=== PATIENT | female | born 1985 | race Caucasian/White ===

== ENCOUNTER 2016-10-18 20:16 | Emergency (ER) | payer SELFPAY ==
[2016-10-18 20:31] VITALS: BP 117/65; PULSE 80; TEMP 98.7; BMI 28.3
--- NOTE | 2016-10-18 21:16 | PDOC ---
History of Present Illness - General Chief Complaint: ,Possible Stated Complaint: NEEDS GYNECOLOGICAL EVAL Time Seen by Provider: 10/18/16 20:51 History Source: Patient - History of Present Illness Initial Comments: 10/18/16 21:15 31 year old female with 2 positive home at home and spotting. LMP 2016. IUD placed 5 years ago. no pmhx Past History - Past Medical History Allergies/Adverse Reactions: Allergies Allergy/AdvReac Type Severity Reaction Status Date / Time No Known Allergies Allergy Verified 10/18/16 20:27 Home Medications: Ambulatory Orders Oxycodone HCl/Acetaminophen [Percocet 5-325 mg Tablet] 1 - 2 tab PO Q6H #20 tablet MDD 4 10/23/16 Other medical history: Denies - Immunization History Immunization Up to Date: Yes - Psycho/Social/Smoking Cessation Hx Suicidal Ideation: No Smoking History: Never smoked Have you smoked in the past 12 months: No Information on smoking cessation initiated: No Hx Alcohol Use: No Drug/Substance Use Hx: No Substance Use Type: None *Physical Exam - Vital Signs Last Vital Signs Temp Pulse Resp BP Pulse Ox 98.7 F 80 16 117/65 99 10/18/16 20:28 10/18/16 20:28 10/18/16 20:28 10/18/16 20:28 10/18/16 20:28 - Physical Exam General Appearance: Yes: Appropriately Dressed Respiratory/Chest: positive: Normal Breath Sounds Cardiovascular: positive: Regular Rhythm, Regular Rate Female Pelvic Exam: positive: normal external exam, cervical os closed, normal adnexa, other (IUD string not visualized). negative: CMT Gastrointestinal/Abdominal: positive: Normal Bowel Sounds, Soft Musculoskeletal: positive: Normal Inspection Extremity: positive: Normal Capillary Refill, Normal Inspection, Normal Range of Motion Integumentary: positive: Normal Color, Dry, Warm Neurologic: positive: Fully Oriented, Alert, Normal Mood/Affect ED Treatment Course - LABORATORY CBC & Chemistry Diagram: 10/18/16 21:20 - RADIOLOGY Radiograph Interpretation: 10/19/16 01:10 US: No IUP IUD in place. early cannot be excluded. Progress Note - Progress Note Progress Note: A: suspected with IUD P: cbc cmp U/s type and screen: o+ no identified. patient is to follow up with reimbursement spec for repeat beta hcg and u/s? *DC/Admit/Observation/Transfer Diagnosis at time of Disposition: Positive blood test - Discharge Dispostion Disposition: HOME - Patient Instructions Printed Discharge Instructions: Medications and Additional Instructions: follow up with logistics coordinator in 2 days for repeat lab results. return to the ER if you are having worsening symptoms, fever NVD.
--- NOTE | 2016-10-18 21:23 | PDOC ---
*Physical Exam - Vital Signs Last Vital Signs Temp Pulse Resp BP Pulse Ox 98.7 F 80 16 117/65 99 10/18/16 20:28 10/18/16 20:28 10/18/16 20:28 10/18/16 20:28 10/18/16 20:28 ED Treatment Course - LABORATORY CBC & Chemistry Diagram: 10/18/16 21:20 Medical Decision Making - Medical Decision Making 10/18/16 21:23 agree with care from ANIA Holley *DC/Admit/Observation/Transfer Diagnosis at time of Disposition: Positive blood test - Discharge Dispostion Disposition: HOME - Patient Instructions Printed Discharge Instructions: Medications and Additional Instructions: follow up with medical coder in 2 days for repeat lab results. return to the ER if you are having worsening symptoms, fever NVD.
[2016-10-18 21:50] LABS: BASOPHIL 0.9 % (0-2.0); EOSINOPHIL 1.1 % (0-4.5); MCH 30.2 pg (25.7-33.7); MCHC 33.8 g/dl (32.0-36.0); MEAN CELL VOLUME 89.3 fl (80-96); MEAN PLT VOLUME 8.6 fl (7.5-11.1); NEUTROPHILS 67.1 % (42.8-82.8); PLATELET COUNT 315 K/MM3 (134-434); RDW 13.1 % (11.6-15.6); WHITE BLOOD COUNT 5.8 K/mm3 (4.0-10.0)
[2016-10-18 22:02] LABS: INR 1.08 (0.82-1.09); PROTHROMBIN TIME (PATIENT) 11.9 SEC (9.98-11.88)
[2016-10-18 22:03] LABS: URINE APPEARANCE CLEAR; URINE BILIRUBIN NEGATIVE (NEGATIVE); URINE BLOOD NEGATIVE (NEGATIVE); URINE COLOR STRAW; URINE GLUCOSE (UA) NEGATIVE (NEGATIVE); URINE KETONE NEGATIVE (NEGATIVE); URINE LEUK ESTERASE NEGATIVE (NEGATIVE); URINE NITRITE NEGATIVE (NEGATIVE); URINE PROTEIN NEGATIVE (NEGATIVE); URINE UROBILINOGEN NEGATIVE E.U./dl (0.2-1.0)
== END 2016-10-19 01:26 | disposition home or self-care (01) ==
LOC: JER 20:16
DX: Z32.01 Encounter for pregnancy test, result positive (principal); Z97.5 Presence of (intrauterine) contraceptive device
CPT/HCPCS: 36415; 76817-TC; 81003; 84702; 84703; 85025; 85610; 86850; 86900; 86901; 87086; 99283-25

== ENCOUNTER 2016-10-22 22:33 | Emergency (ER) | payer SELFPAY ==
[2016-10-22 22:42] VITALS: BP 118/72; PULSE 78; TEMP 99; BMI 26.6
--- NOTE | 2016-10-22 23:22 | PDOC ---
History of Present Illness - History of Present Illness Initial Comments: 10/22/16 23:33 The patient is a 31 year old female, with no significant past medical history, who presents to the emergency department for suprapubic abdominal pain today. She reports last week she was feeling extremely emotional and took two home test which were positive, however, she reports she has an IUD in place. She reports being seen in the ED a week ago and having a transvaginal ultrasound performed which was negative for IUP or ectopic. She states that today she has some vaginal bleeding and increasing suprapubic abdominal pain today which began as a mild discomfort just a week ago. She denies chest pain, shortness of breath, headache and dizziness. She denies fever, chills, nausea, vomit, diarrhea and constipation. She denies dysuria, frequency, urgency and hematuria. Allergies: NKDA <Saundra Greer - Last Filed: 10/23/16 01:45> - General History Source: Patient <Meliton Vickers - Last Filed: 10/23/16 02:20> - General Chief Complaint: Pain Stated Complaint: PAIN Time Seen by Provider: 10/22/16 23:22 Past History <Saundra Greer - Last Filed: 10/23/16 01:45> - Reproductive History (#): 1 Para: 1 Cervical CA: No Dysfunctional Uterine Bleeding: No Ectopic : No Endometrial CA: No Polycystic Ovaries: No Therapeutic (s) & number: No Tubal Ligation: No Spontaneous : 0 - Immunization History Immunization Up to Date: Yes - Psycho/Social/Smoking Cessation Hx Suicidal Ideation: No Smoking History: Never smoked Have you smoked in the past 12 months: No Hx Alcohol Use: No Drug/Substance Use Hx: No Substance Use Type: None <Meliton Vickers - Last Filed: 10/23/16 02:20> - Past Medical History Allergies/Adverse Reactions: Allergies Allergy/AdvReac Type Severity Reaction Status Date / Time No Known Allergies Allergy Verified 10/22/16 22:39 Home Medications: Ambulatory Orders Oxycodone HCl/Acetaminophen [Percocet 5-325 mg Tablet] 1 - 2 tab PO Q6H #20 tablet MDD 4 10/23/16 Review of Systems - Review of Systems Able to Perform ROS?: Yes Comments:: 10/22/16 23:34 CONSTITUTIONAL: Absent: fever, chills, diaphoresis, generalized weakness, malaise, loss of appetite HEENT: Absent: rhinorrhea, nasal congestion, throat pain, throat swelling, difficulty swallowing, mouth swelling, ear pain, eye pain, visual Changes CARDIOVASCULAR: Absent: chest pain, syncope, palpitations, irregular heart rate, lightheadedness , peripheral edema RESPIRATORY: Absent: cough, shortness of breath, dyspnea with exertion, orthopnea, wheezing, stridor, hemoptysis GASTROINTESTINAL: (+) suprapubic abdominal pain Absent: abdominal distension, nausea, vomiting, diarrhea, constipation, melena, hematochezia PELVIC/REPRODUCTIVE: (+) Vaginal bleeding w/ at positive at home test GENITOURINARY: Absent: dysuria, frequency, urgency, hesitancy, hematuria, flank pain, genital pain MUSCULOSKELETAL: Absent: myalgia, arthralgia, joint swelling SKIN: Absent: rash, itching, pallor HEMATOLOGIC/IMMUNOLOGIC: Absent: easy bleeding, easy bruising, lymphadenopathy, frequent infections ENDOCRINE: Absent: unexplained weight gain, unexplained weight loss, heat intolerance, cold intolerance NEUROLOGIC: Absent: headache, focal weakness or paresthesias, dizziness, unsteady gait, seizure, mental status changes, bladder or bowel incontinence PSYCHIATRIC: Absent: anxiety, depression, suicidal or homicidal ideation, hallucinations. <Saundra Greer - Last Filed: 10/23/16 01:45> *Physical Exam - Vital Signs Last Vital Signs Temp Pulse Resp BP Pulse Ox 99 F 78 18 118/72 99 10/22/16 22:40 10/22/16 22:40 10/22/16 22:40 10/22/16 22:40 10/22/16 22:40 - Physical Exam Comments: 10/22/16 23:36 GENERAL: Well developed, well nourished. Awake and alert. No acute distress. HEENT: Normocephalic, atraumatic. PERRLA, EOMI. No conjunctival pallor. Sclera are non- icteric. Moist mucous membranes. Oropharynx is clear. NECK: Supple. Full ROM. No JVD. Carotid pulses 2+ and symmetric, without bruits. No thyromegaly. No lymphadenopathy. CARDIOVASCULAR: Regular rate and rhythm. No murmurs, rubs, or gallops. Distal pulses are 2+ and symmetric. PULMONARY: No evidence of respiratory distress. Lungs clear to auscultation bilaterally. No wheezing, rales or rhonchi. ABDOMINAL: Soft. Non-tender. Non-distended. No rebound or guarding. No organomegaly. Normoactive bowel sounds. MUSCULOSKELETAL Normal range of motion at all joints. No bony deformities or tenderness. No CVA tenderness. EXTREMITIES: No cyanosis. No clubbing. No edema. No calf tenderness. SKIN: Warm and dry. Normal capillary refill. No rashes. No jaundice. NEUROLOGICAL: Alert, awake, appropriate. Cranial nerves 2-12 intact. Normoreflexic in the upper and lower extremities. Normal speech. Toes are down-going bilaterally. Gait is normal without ataxia. PSYCHIATRIC: Cooperative. Good eye contact. Appropriate mood and affect. <Saundra Greer - Last Filed: 10/23/16 01:45> - Vital Signs Last Vital Signs Temp Pulse Resp BP Pulse Ox 99 F 78 18 118/72 99 10/22/16 22:40 10/22/16 22:40 10/22/16 22:40 10/22/16 22:40 10/22/16 22:40 <Meliton Vickers - Last Filed: 10/23/16 02:20> ED Treatment Course - LABORATORY CBC & Chemistry Diagram: 10/22/16 23:39 10/22/16 23:39 - RADIOLOGY Radiograph Interpretation: 10/23/16 01:41 Exam: Transabdominal and endovaginal sonogram and duplex sonography Images: 89 Clinical indication: IUD. Positive test. Findings: The uterus is anteverted and retroflexed. The uterus measures 8.3 x 5.9 x 7.6 cm on transabdominal images and has a lobulated contour. Fibroids are noted measuring up to 3.1 cm in diameter. There is no IUP. On endovaginal images stress fluid is present in the cul-de-sac. The cervix is of normal appearance. In IUD appears in satisfactory position. Uterine fibroids are again noted measuring up to 2.7 cm in diameter in the fundus. There is no IUP. A complex 1.5 cm cyst is noted in the ovary. The ovary has an otherwise normal appearance measures 2.1 x 1.6 x 2.1 cm contains follicles and demonstrates flow in the parenchyma and color images. The right ovary has a normal appearance and echotexture and contains follicles measuring 2.4 x 1.5 x 1.2 cm with normal arterial flow seen on color Doppler images. Medial to the right ovary there is a heterogeneous vascular process measuring approximately 1.6 x 0.8 cm in diameter suspicious for an ectopic gestation. Impression: IUD in satisfactory position. No IUP. Fibroid uterus noted. Complex cyst, likely hemorrhagic in left ovary appears otherwise unremarkable. No adnexal mass on the left. Normal appearance of the right ovary. Adnexal mass seen medial to the right ovary suspicious for ectopic station. This report was read by Kelvin Viera M.D. 10/23/2016 01:35 EST <Saundra Greer - Last Filed: 10/23/16 01:45> - LABORATORY CBC & Chemistry Diagram: 10/22/16 23:39 10/22/16 23:39 <Meliton Vickers - Last Filed: 10/23/16 02:20> Medical Decision Making - Medical Decision Making 10/23/16 01:45 The on-call medical radiation dosimetrist, Dr. Lin, was called at 1:38 via phone answering service and I was informed that this medical radiation dosimetrist group has retired and the office is now closed. at 1:40, I called [facility] ([phone]) and was directed to speak with Dr. Lu Angel([phone]) who has informed me that she only covers [facility]. at 1:41, I was redirected to Dr. Hannah, the covering medical radiation dosimetrist physician tonight in [facility], and the patient's case was discussed. <Saundra Greer - Last Filed: 10/23/16 01:45> - Medical Decision Making 10/23/16 02:17 Dr. Vickers: The scribe's documentation has been prepared under my direction and personally reviewed by me in its entirery. I confirm that the note above accurately reflects all work, treatment, procedures, and medical decision making performed by me. Pt found to have a right sided ectopic . Pt given Methotrate as suggested by Dr. Hannah medical radiation dosimetrist. BHCG quant 365.1 Pt advised to return in two days to follow up for repeat Bhcg Quant and US. Return sooner if pain is worse. <Meliton Vickers - Last Filed: 10/23/16 02:20> *DC/Admit/Observation/Transfer - Attestations Scribe Attestion: 10/22/16 23:36 Documentation prepared by Saundra Greer, acting as medical economics consultant for Meliton Vickers DO <Saundra Greer - Last Filed: 10/23/16 01:45> - Discharge Dispostion Admit: No <Meliton Vickers - Last Filed: 10/23/16 02:20> Diagnosis at time of Disposition: Ectopic Qualifiers: Location of ectopic : ovarian Intrauterine status: without intrauterine Qualified Code(s): O00.20 - Ovarian without intrauterine - Discharge Dispostion Disposition: HOME Condition at time of disposition: Stable - Prescriptions Prescriptions: Oxycodone HCl/Acetaminophen [Percocet 5-325 mg Tablet] 1 - 2 tab PO Q6H #20 tablet MDD 4 - Referrals Referrals: Annalise Hannah MD [Staff Physician] - - Patient Instructions Printed Discharge Instructions: DI for Ectopic Additional Instructions: Please follow up with your refrigeration mechanic or come back to the ER in two days or less. Please follow up with your schedule appointment to have the IUD removed. Take medication as directed. Return if symptoms become worse.
[2016-10-23 00:05] LABS: BASOPHIL 1.1 % (0-2.0); EOSINOPHIL 1.9 % (0-4.5); MCH 29.7 pg (25.7-33.7); MCHC 33.3 g/dl (32.0-36.0); MEAN CELL VOLUME 89.2 fl (80-96); MEAN PLT VOLUME 8.8 fl (7.5-11.1); NEUTROPHILS 64.1 % (42.8-82.8); PLATELET COUNT 296 K/MM3 (134-434); RDW 13.4 % (11.6-15.6); WHITE BLOOD COUNT 5.8 K/mm3 (4.0-10.0)
[2016-10-23 00:25] LABS: URINE APPEARANCE CLEAR; URINE BILIRUBIN NEGATIVE (NEGATIVE); URINE COLOR YELLOW; URINE GLUCOSE (UA) NEGATIVE (NEGATIVE); URINE KETONE 1+ (NEGATIVE); URINE LEUK ESTERASE NEGATIVE (NEGATIVE); URINE NITRITE NEGATIVE (NEGATIVE); URINE PROTEIN NEGATIVE (NEGATIVE); URINE UROBILINOGEN NEGATIVE E.U./dl (0.2-1.0)
[2016-10-23 00:34] LABS: ANION GAP 12 (8-16); BILIRUBIN,TOTAL 0.6 mg/dL (0.2-1.0); CO2 23 mmol/L (21-32); COCKROFT - GAULT 134.6315; CREATININE 0.7 mg/dL (0.55-1.02); GLUCOSE,RANDOM 80 mg/dL (74-106); SGOT/AST 15 U/L (15-37); SGPT/ALT 21 U/L (12-78); TOT PROT 7.3 g/dl (6.4-8.2)
[2016-10-23 00:37] LABS: ALK PHOS 95 U/L (45-117)
[2016-10-23 00:37] LABS: URINE BLOOD 3+ (NEGATIVE)
[2016-10-23 00:56] LABS: URINE MUCUS RARE; URINE RBC 18 /hpf (0-3); URINE WBC 2 /hpf (3-5)
[2016-10-23] MEDS ORDERED: METHOTREXATE SODIUM/PF 25 MG/ML VIAL IM ONE (01:46)
[2016-10-23] MEDS ORDERED: OXYCODONE/APAP 5/325MG COMBO TABLET PO ONE (02:09)
[2016-10-23] MEDS ORDERED: OXYCODONE/APAP 5/325MG COMBO TABLET ONE (02:38)
== END 2016-10-23 03:00 | disposition home or self-care (01) ==
LOC: JER 22:33
PROC: 3E023GC Introduction of Other Therapeutic Substance into Muscle, Percutaneous Approach (ICD-10-PCS; principal; 2016-10-22)
DX: O00.20 Ovarian pregnancy without intrauterine pregnancy (principal); O34.81 Maternal care for other abnormalities of pelvic organs, first trimester; N83.202 Unspecified ovarian cyst, left side; O34.11 Maternal care for benign tumor of corpus uteri, first trimester; D25.9 Leiomyoma of uterus, unspecified; Z3A.00 Weeks of gestation of pregnancy not specified; Z97.5 Presence of (intrauterine) contraceptive device
CPT/HCPCS: 36415; 76817-TC; 80053; 81003; 81015; 84702; 84703; 85025; 86850; 86900; 86901; 99282-25; J9260

== ENCOUNTER 2016-10-24 17:17 | Emergency (ER) | payer SELFPAY ==
[2016-10-24 17:43] VITALS: BP 117/66; PULSE 90; TEMP 98.3; BMI 28.3
--- NOTE | 2016-10-24 22:49 | PDOC ---
[id number] REVISIT Time Seen by Provider: 10/24/16 18:15 History Source: Patient Exam Limitations: No Limitations - History of Present Illness Initial Comments: 10/24/16 22:44 31 yr female seen in ER 2 days ago for ectopic pt received methotrexate. Pt here for repeat beta and US. pt saw her entry level assistant manager yesterday had her IUD removed. Pt denies any bleeding states light brown spotting. no cramping or pain . no back pain . Past History - Past Medical History Allergies/Adverse Reactions: Allergies Allergy/AdvReac Type Severity Reaction Status Date / Time No Known Allergies Allergy Verified 10/24/16 17:32 Home Medications: Ambulatory Orders Oxycodone HCl/Acetaminophen [Percocet 5-325 mg Tablet] 1 - 2 tab PO Q6H #20 tablet MDD 4 10/23/16 Other medical history: DENIES. - Reproductive History (#): 1 Para: 1 Cervical CA: No Dysfunctional Uterine Bleeding: No Ectopic : No Endometrial CA: No Polycystic Ovaries: No Therapeutic (s) & number: No Tubal Ligation: No Spontaneous : 0 - Immunization History Immunization Up to Date: Yes - Psycho/Social/Smoking Cessation Hx Suicidal Ideation: No Smoking History: Never smoked Have you smoked in the past 12 months: No Hx Alcohol Use: No Drug/Substance Use Hx: No Substance Use Type: None *Physical Exam - Vital Signs Last Vital Signs Temp Pulse Resp BP Pulse Ox 98.3 F 90 19 117/66 100 10/24/16 17:32 10/24/16 17:32 10/24/16 17:32 10/24/16 17:32 10/24/16 17:32 - Physical Exam General Appearance: Yes: Nourished, Appropriately Dressed HEENT: positive: EOMI, OLENA Respiratory/Chest: positive: Lungs Clear, Normal Breath Sounds Cardiovascular: positive: Regular Rhythm, Regular Rate Gastrointestinal/Abdominal: positive: Normal Bowel Sounds, Soft. negative: Tender Musculoskeletal: positive: Normal Inspection Extremity: positive: Normal Capillary Refill, Normal Inspection, Normal Range of Motion Integumentary: positive: Normal Color, Dry, Warm Neurologic: positive: Fully Oriented, Alert, Normal Mood/Affect, Normal Response , Motor Strength 5/5 ED Treatment Course - ADDITIONAL ORDERS Additional order review: Laboratory Results 10/24/16 19:10 Beta HCG, Quant 420.2 - RADIOLOGY Radiology Studies Ordered: 10/24/16 23:04 us transvaginal Medical Decision Making - Medical Decision Making 10/24/16 22:47 cc: here for follow up beta and US dx with ectopic 2 days ago had methotrexate pt states she has no pain no cramping, mild light brown spotting pt saw her EQUIPMENT COORDINATOR yesterday and had IUD removed 10/24/16 23:02 US report reviewed type and screen drawn (blood bank states they most likely will not have the result back for a few hours) I have discussed with the pt the possibility of needing Rhogam , we will call her tomorrow to give result. pt agrees with plan and will be dc home. 10/28/16 16:40 *DC/Admit/Observation/Transfer Diagnosis at time of Disposition: Aborted ectopic - Discharge Dispostion Disposition: HOME Condition at time of disposition: Stable - Patient Instructions Additional Instructions: please call tomorrow [phone] to get the result of your blood type you can call after 8am please follow with your publications editor for follow up as scheduled Return if any worsening symptoms
== END 2016-10-24 23:03 | disposition home or self-care (01) ==
LOC: JER 17:17 → JERFT 17:17
DX: O00.80 Other ectopic pregnancy without intrauterine pregnancy (principal)
CPT/HCPCS: 36415; 76817-TC; 84702; 86850; 86900; 86901; 99281-25

== ENCOUNTER 2021-02-13 15:31 | Emergency (ER) | payer OTHER ==
[2021-02-13 15:39] VITALS: BP 100/70; PULSE 85; TEMP 97.6; BMI 28.3
[2021-02-13 18:13] LABS: BASO % 1.6 % (0-2.0); EOS % 2.2 % (0-4.5); HEMATOCRIT 39.9 % (32.4-45.2); HEMOGLOBIN 13.1 GM/dL (10.7-15.3); LYMPH % 28.8 % (8-40); MCH 26.6 pg (25.7-33.7); MCHC 32.9 g/dl (32.0-36.0); MEAN CELL VOLUME 80.9 fl (80-96); MEAN PLT VOLUME 7.5 fl (7.5-11.1); MONO % 9.3 % (3.8-10.2); NEUT % 58.1 % (42.8-82.8); PLATELET COUNT 369 10^3/uL (134-434); RBC 4.94 M/mm3 (3.60-5.2); RDW 16.4 % (11.6-15.6); WHITE BLOOD COUNT 6.1 K/mm3 (4.0-10.0)
[2021-02-13 18:26] LABS: EPI CELLS >36 /uL (0-25.1); HYALINE CASTS 4 /uL (0-3.1); PH,URINE 5.5 (5.0-8.0); URINE APPEARANCE TURBID; URINE BACTERIA 4105 /uL (0-1359); URINE BILIRUBIN NEGATIVE (NEGATIVE); URINE COLOR YELLOW; URINE GLUCOSE (UA) NEGATIVE (NEGATIVE); URINE KETONE NEGATIVE (NEGATIVE); URINE LEUK ESTERASE 3+ (NEGATIVE); URINE NITRITE NEGATIVE (NEGATIVE); URINE PROTEIN 1+ (NEGATIVE); URINE RBC 48 /uL (0-23.9); URINE UROBILINOGEN 0.2 mg/dL (0.2-1.0); URINE WBC 1321 /uL (0-25.8)
[2021-02-13 20:52] LABS: YEAST NONE SEEN (NEGATIVE)
== END 2021-02-13 20:10 | disposition home or self-care (01) ==
LOC: JER 15:31
DX: O20.9 Hemorrhage in early pregnancy, unspecified (principal); O23.591 Infection of other part of genital tract in pregnancy, first trimester; Z3A.01 Less than 8 weeks gestation of pregnancy
CPT/HCPCS: 36415; 76817-TC; 81003; 84702; 84703; 85025; 86850; 86900; 86901; 99284-25